=== PATIENT | female | born 1990 | race Two or more races ===

== ENCOUNTER 2022-08-30 17:25 | Inpatient (IN) | payer OTHER ==
[2022-08-30] MEDS ORDERED: MAGNESIUM 4GM/H20 - 4 GM/100 ML IVPB IVPB SCH (18:15)
[2022-08-30] MEDS ORDERED: MAGNESIUM SULFATE 20GM/500ML - 20 GM/500 ML INFUS.BAG IVPB SCH (18:15)
[2022-08-30] MEDS ORDERED: ACETAMINOPHEN 1000 MG/100 ML BAG IVPB ONE (18:16)
[2022-08-30] MEDS ORDERED: ONDANSETRON 4 MG/2 ML VIAL IVPB ONE (18:16)
[2022-08-30] MEDS ORDERED: MAGNESIUM SULFATE 20GM/500ML - 20 GM/500 ML INFUS.BAG ONE (18:23)
[2022-08-30] MEDS ORDERED: LACTATED RINGERS SOLUTION 1,000 ML/1,000 ML INFUS.BAG IV SCH (18:30)
[2022-08-30] MEDS ORDERED: BETAMET ACET/BETAMET NA PH 30 MG/5 ML VIAL ONE (18:40)
[2022-08-30] MEDS ORDERED: ACETAMINOPHEN INJECTION 100 ML IVPB ONE (18:41)
[2022-08-30] MEDS ORDERED: BETAMET ACET/BETAMET NA PH 30 MG/5 ML VIAL IM ONE (18:42)
[2022-08-30 18:51] VITALS: BMI 33.7
[2022-08-30 18:53] LABS: BASO % 0.4 % (0-2.0); EOS % 1.3 % (0-4.5); LYMPH % 23.7 % (8-40); MCH 29.4 pg (25.7-33.7); MCHC 33.4 g/dl (32.0-36.0); MEAN CELL VOLUME 87.9 fl (80-96); MEAN PLT VOLUME 9.9 fl (7.5-11.1); MONO % 6.5 % (3.8-10.2); NEUT % 68.1 % (42.8-82.8); PLATELET COUNT 328 10^3/uL (134-434); RBC 2.39 M/mm3 (3.60-5.2); RDW 16.2 % (11.6-15.6); WHITE BLOOD COUNT 9.2 K/mm3 (4.0-10.0)
[2022-08-30 19:12] LABS: INR 1.03 (0.83-1.09)
[2022-08-30 19:13] LABS: CALCIUM 8.2 mg/dL (8.5-10.1)
[2022-08-30 19:14] LABS: ALBUMIN 1.8 g/dl (3.4-5.0); BLOOD UREA NITROGEN 20.9 mg/dL (7-18)
[2022-08-30 19:15] LABS: ACTIVATED PTT 37.5 SECONDS (25.2-36.5)
[2022-08-30 19:17] LABS: CREATININE 1.2 mg/dL (0.55-1.3); URIC ACID 5.3 mg/dL (2.6-7.2)
[2022-08-30 19:18] LABS: BILIRUBIN,TOTAL 0.4 mg/dL (0.2-1)
[2022-08-30 20:14] VITALS: BP 151/86; PULSE 97; RESP 19; TEMP 98.4
[2022-08-30 20:21] LABS: HIV INTERPRETATION NEGATIVE (NEGATIVE)
== END 2022-08-30 19:50 | disposition short-term general hospital (02) | DRG 566 ==
LOC: JLDR 17:25
PROVIDERS: ADMIT Obstetrics & Gynecology; ATTEND Obstetrics & Gynecology
DX: O14.13 Severe pre-eclampsia, third trimester (principal); Z3A.28 28 weeks gestation of pregnancy
CPT/HCPCS: 36415; 80053; 82570; 82962; 84156; 84550; 85025; 85610; 85730; 86780; 86850; 86900; 86901; 87389; 96372; C9803-CS; U0003; U0005